=== PATIENT | female | born 1960 | race African-American/Black ===

== ENCOUNTER 2022-05-24 08:47 | Emergency (ER) | payer MEDICAID ==
[~2022-05-24] VITALS: Ht 167.6 cm; Wt 78.0 kg
[2022-05-24] MEDS ORDERED: KETOROLAC 60MG/2ML VIAL IM ONE (09:15)
[2022-05-24 09:38] LABS: HEMATOCRIT. 43.1 % (36.0-48.0); HEMOGLOBIN. 14.8 g/dL (12.0-16.0); MEAN CORPUSCULAR HEMOGLOBIN 29.3 pg (28.0-32.0); MEAN CORPUSCULAR VOLUME 85.2 fL (81.0-99.0); MEAN PLATELET VOLUME 7.3 fl (7.4-10.4); PLATELET 304 x1000/uL (130-400); RED BLOOD CELL COUNT 5.05 mill/uL (4.2-5.4); RED CELL DISTRIBUTION WIDTH 13.4 % (11.6-14.6)
[2022-05-24 09:47] LABS: CHLORIDE 110 mEq/L (98-107)
[2022-05-24 09:47] LABS: CLARITY URINE CLEAR (CLEAR); COLOR URINE YELLOW (YELLOW); KETONES URINE NEGATIVE (NEGATIVE); LEUKOCYTE ESTERASE URINE NEGATIVE (NEGATIVE); NITRITE URINE NEGATIVE (NEGATIVE); OCCULT BLOOD URINE 2+ (NEGATIVE); PROTEIN URINE NEGATIVE (NEGATIVE); SPECIFIC GRAVITY URINE 1.006 (1.005-1.030); UROBILINOGEN URINE 0.2 E.U./dL (0.2-1.0)
[2022-05-24 11:19] LABS: PLATELET ESTIMATE NORMAL
[2022-05-24] MEDS ORDERED: IBUP-2028 MT (11:54)
[2022-05-24] MEDS ORDERED: TAMS-11 MT (11:54)
[2022-05-24] MEDS ORDERED: HYDR-4001 MT (11:54)
[2022-05-24 12:22] VITALS: BP 158/70
== END 2022-05-24 12:23 | disposition home or self-care (01) ==
LOC: ER 08:47
DX: N20.0 Calculus of kidney (principal); I10 Essential (primary) hypertension; Z87.440 Personal history of urinary (tract) infections; Z98.890 Other specified postprocedural states
CPT/HCPCS: 36415; 74176; 80053; 81003; 85025; 96372; 99284; J1885